=== PATIENT | male | born 1970 | race Caucasian/White ===

== ENCOUNTER → 2016-07-08 | Emergency (ER) | payer SELFPAY ==
[~2016-07-08] VITALS: Ht 175.3 cm; Wt 71.2 kg
[~2016-07-08] MED LIST: NALOXONE HCL 0.4 MG/ML AMPUL ONE
[2016-07-08 10:53] VITALS: BP 113/67
== END | disposition home or self-care (01) ==
LOC: ER 10:56
DX: F11.10 Opioid abuse, uncomplicated (principal); Z88.0 Allergy status to penicillin
CPT/HCPCS: A4606; J2310; Z7610

== ENCOUNTER 2016-07-09 00:42 | Emergency (ER) | payer SELFPAY ==
[~2016-07-09] VITALS: Ht 167.6 cm; Wt 63.5 kg
--- NOTE | 2016-07-09 00:42 | NUR ---
BIB RA HERE FOR "HEROIN USE AT 1100 YESTERDAY MORNING; WAS IN PRISON ALTERED AND GIVEN NARCAN 2MG 20 MINUTES [employer]". PINPOINT PUPILS NOTED AT THIS TIME. DENIES ANY OTHER DRUG/ALCOHOL USE/CP/SOB/N/V. MILDLY DIAPHORETIC. RESP EVEN AND UNLABORED. PLACED ON MONITOR. SR WITH NO ECTOPY. PLACED ON 02 AT 2L/MIN BNC AFTER RA SATS 91% RA WHICH INCREAES O2 SATS TO 98%. INFORMED OF PLAN OF CARE. [employer] AT BEDSIDE.
[2016-07-09] MEDS ORDERED: IV NS 0.9% 500 ML BAG IV ONE (01:00)
[2016-07-09] MEDS ORDERED: IV SET PRIMARY 1 EA INFUS.SET MC ONE ×2 (01:19→02:31)
[2016-07-09] MEDS ORDERED: IV NS 0.9% 500 ML IV ONE (01:19)
[2016-07-09 01:20] LABS: BASOPHILS % (AUTO) 0.4 % (0.0-2.0); EOSINOPHILS # (AUTO) 0.1 /CMM (0.0-0.7); EOSINOPHILS % (AUTO) 1.1 % (0.0-6.0); HEMATOCRIT 39 % (39-51); HEMOGLOBIN 12.9 g/dL (13.5-17.5); LYMPHOCYTES # (AUTO) 1.1 /CMM (0.8-4.8); LYMPHOCYTES % (AUTO) 13.1 % (20.0-44.0); MEAN CORPUSCULAR HEMOGLOBIN 29 PG (26.0-33.0); MEAN CORPUSCULAR HGB CONC 34 g/dl (31.0-36.0); MEAN CORPUSCULAR VOLUME 85 fL (80-96); MONOCYTES # (AUTO) 0.7 /CMM (0.1-1.30); NEUTROPHILS # (AUTO) 6.3 /CMM (1.8-8.9); NEUTROPHILS % (AUTO) 76.4 % (43.0-81.0); PLATELET COUNT (AUTO) 268 /CMM (150-450); RDW COEFFICIENT OF VARIATION 13.4 (11.5-15.0); RED BLOOD CELL COUNT(AUTO) 4.52 MIL/uL (4.5-6.0); WHITE BLOOD COUNT (AUTO) 8.3 K/uL (4.3-11.0)
[2016-07-09 01:29] LABS: CALCIUM, SERUM 8.2 mg/dL (8.5-10.1); CREATININE 0.8 mg/dL (0.6-1.3); POTASSIUM 4.2 mmol/L (3.5-5.1)
--- NOTE | 2016-07-09 01:31 | NUR ---
MEDICATED ORDERED. [employer] STILL AT BEDSIDE.
[2016-07-09 01:36] LABS: ALBUMIN 3.6 g/dL (3.4-5.0); BILIRUBIN,DIRECT 0.1 mg/dL (0.0-0.2); BILIRUBIN,TOTAL 0.3 mg/dL (0.2-1.0); TOTAL PROTEIN, SERUM 7.5 g/dL (6.4-8.2)
--- NOTE | 2016-07-09 02:17 | NUR ---
RESTING WITH NO S/S OF DISTRESS. RESP EVEN AND UNLABORD. STILL MONITORED CLOSELY.
[2016-07-09] MEDS ORDERED: IV NS 0.9% 1,000 ML BAG IV ONE (02:30)
[2016-07-09] MEDS ORDERED: IV NS 0.9% 1,000 ML ONE (02:31)
--- NOTE | 2016-07-09 03:03 | NUR ---
EASILY AROUSABLE. NO S/S OF DISTRES NOTED. RESP EVEN AND UNLABORED. STILL MONITORED CLOSELY.
[2016-07-09] MEDS ORDERED: NALOXONE HCL 0.4 MG/ML AMPUL IV ONE (04:00)
--- NOTE | 2016-07-09 04:01 | NUR ---
MEDICATED ORDERED AFTER RR 8; AWAKENED RIGHT AWAY.
--- NOTE | 2016-07-09 05:01 | NUR ---
AWAKE TALKING TO [employer]. DENIES ANY NEW OR WORSENING SX'S AT THIS TIME. NON DIAPHORETIC. RESP EVEN AND UNLABORED.
[2016-07-09 05:36] VITALS: BP 113/65
--- NOTE | 2016-07-09 05:37 | NUR ---
DR. MCCLOUD AT BEDSIDE.
--- NOTE | 2016-07-09 05:45 | NUR ---
Patient discharged to custody in stable condition. Written and verbal after care instructions given. Patient verbalizes understanding of instruction. IV removed. Catheter intact and site benign. Pressure and 4x4 applied to site. No bleeding noted. Ambulatory with a steady gait accompanied by [employer].
--- NOTE | 2016-07-09 05:45 | NUR ---
IV removed. Catheter intact and site benign. Pressure and 4x4 applied to site. No bleeding noted.DC instructions given, patient verbalized understanding to instructions. Patient discharged to [employer] custody.
== END 2016-07-09 05:47 ==
LOC: ER 00:43
DX: T40.1X1A Poisoning by heroin, accidental (unintentional), initial encounter (principal); Z88.0 Allergy status to penicillin; R73.09 Other abnormal glucose; Y92.9 Unspecified place or not applicable
CPT/HCPCS: 36415; 80048; 80076; 82962; 85025; 93005; 96361; 96374; 99285; A4606; J2310; J7030; J7040; Z7610